=== PATIENT | male | born 1980 | race African-American/Black ===

== ENCOUNTER → 2016-12-06 | Outpatient (CLI) | payer OTHER ==
[~2016-12-06] MED LIST: GASTROGRAFIN SOLUTION 30ML (Q9963) As Ordered ONE; ISOVUE-370 76% 100ML VIAL (Q9967) As Ordered ONE
--- NOTE | 2016-12-06 15:10 | REP ---
CT ABDOMEN PELVIS WITH IV AND ORAL CONTRAST: HISTORY: Nausea and vomiting. CT CONTRAST DOSE: 100 mL of intravenous Isovue 370. CT FINDINGS: Preliminary digital soa architect radiograph is unremarkable. The lung bases are essentially clear. The esophagus is dilated and fluid distended at the time of CT imaging suggesting gastroesophageal reflux. Stomach is unremarkable. Gallbladder and pancreas are normal in appearance. No adrenal lesion is seen. 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 The right kidney is unremarkable. No hydronephrosis is seen. Normal caliber aorta is noted. No retroperitoneal mass or adenopathy is seen. A normal appendix is noted retrocecal. There are one or two dystrophic calcifications in the prostate gland. Seminal vesicles and urinary bladder are unremarkable. No abdominal wall defect is seen. No bony destructive lesion is appreciated. IMPRESSION: 1. Dilated fluid-filled distal esophagus probable reflux. 2. Somewhat malrotated left kidney. 3. Otherwise unremarkable CT abdomen and pelvis. Signed by Moses Valencia MD 12/06/2016 03:36 P
== END ==
LOC: M RAD 11:46
PROVIDERS: ATTEND Internal Medicine Gastroenterology
DX: R11.11 Vomiting without nausea (principal)
CPT/HCPCS: 74177; Q9963; Q9967

== ENCOUNTER → 2016-12-10 | Outpatient (CLI) | payer OTHER ==
[~2016-12-10] MED LIST changes: +E-Z-GAS II EFFERVESCENT PACKET (SODIUM BICARB./CITRIC ACID/SIMETHICONE) As Ordered ONE; +E-Z-HD 98% w/w 340GM SUSP BTL As Ordered ONE; +E-Z-PAQUE 96% w/w SUSP 176GM BTL As Ordered ONE; -GASTROGRAFIN SOLUTION 30ML (Q9963) As Ordered ONE; -ISOVUE-370 76% 100ML VIAL (Q9967) As Ordered ONE
--- NOTE | 2016-12-10 17:45 | REP ---
ESOPHAGRAM: The procedure was performed by LUCIANO Roberts under the direct supervision of Dr. Finney. All imaging was reviewed with Dr. Finney prior to dictation. The patient was able to ingest liquid barium and air in a quantity sufficient to produce a double contrast examination. The oral and pharyngeal stages of deglutition appeared unremarkable. There was dilatation of the esophagus. There is a smooth stricture at the distal end of the esophagus causing significant delay of passage of barium. Tertiary contractions are also noted. This is most consistent with achalasia. Impression: Smooth distal esophageal stricture, delayed passage of barium and esophageal dilatation. These are all consistent with Achalasia. Fluoroscopy time of 5 minutes and 12 seconds. Reviewed by LUCIANO Bernard 12/13/2016 09:40 AEdited and Signed by Kaiden Finney MD 12/13/2016 04:35 P
== END ==
LOC: M RAD 09:02
PROVIDERS: ATTEND Internal Medicine Gastroenterology
DX: K22.2 Esophageal obstruction (principal)

== ENCOUNTER 2016-12-13 10:03 | Outpatient (CLI) | payer OTHER ==
[~2016-12-13] VITALS: Ht 180.3 cm; Wt 76.2 kg
[~2016-12-13 10:03] MED LIST changes: -E-Z-GAS II EFFERVESCENT PACKET (SODIUM BICARB./CITRIC ACID/SIMETHICONE) As Ordered ONE; -E-Z-HD 98% w/w 340GM SUSP BTL As Ordered ONE; -E-Z-PAQUE 96% w/w SUSP 176GM BTL As Ordered ONE; +NS 1,000 ML IV ONE
[2016-12-13] MEDS ORDERED: LIDOCAINE 2% INJ 100 MG/5 ML SDV (FOR ANES.) As Ordered ONE (12:35)
[2016-12-13] MEDS ORDERED: PROPOFOL 200 MG/20 ML VIAL As Ordered ONE ×2 (12:35→12:44)
--- NOTE | 2016-12-13 12:59 | ROOR ---
Patient Name: Segun Canales Procedure Date: 12/13/2016 12:36 PM Date of : 1980 Age: 36 Room: [facility] Gender: Male Note Status: Finalized Procedure: Upper GI endoscopy Indications: Dysphagia, Persistent vomiting of unknown cause, Vomiting Providers: Elvis Brannon MD Referring MD: AMSOOD SANCHEZ MD Requesting Provider: Medicines: Monitored Anesthesia Care Complications: No immediate complications. Procedure: Pre-Anesthesia Assessment: - Prior to the procedure, a History and Physical was performed, and patient medications and allergies were reviewed. The patient is competent. The risks and benefits of the procedure and the sedation options and risks were discussed with the patient. All questions were answered and informed consent was obtained. Patient identification and proposed procedure were verified by the physician, the nurse and the roll up machine operator in the procedure room. Mental Status Examination: alert and oriented. Airway Examination: normal oropharyngeal airway and neck mobility. Respiratory Examination: clear to auscultation. CV Examination: normal. Prophylactic Antibiotics: The patient does not require prophylactic antibiotics. Prior Anticoagulants: The patient has taken no previous anticoagulant or antiplatelet agents. ASA Grade Assessment: II - A patient with mild systemic disease. After reviewing the risks and benefits, the patient was deemed in satisfactory condition to undergo the procedure. The anesthesia plan was to use monitored anesthesia care (MAC). Immediately prior to administration of medications, the patient was re-assessed for adequacy to receive sedatives. The heart rate, respiratory rate, oxygen saturations, blood pressure, adequacy of pulmonary ventilation, and response to care were monitored throughout the procedure. The physical status of the patient was re-assessed after the procedure. The Endoscope was introduced through the mouth, and advanced to the second part of duodenum. The upper GI endoscopy was accomplished without difficulty. The patient tolerated the procedure well. Findings: The lumen of the middle third of the esophagus and lower third of the esophagus was severely dilated. Biopsies were obtained from the proximal and distal esophagus with cold forceps for histology of suspected eosinophilic esophagitis. Verification of patient identification for the specimen was done by the physician and nurse using the patient's name, date and medical record number. The lower third of the esophagus was moderately tortuous. Diffuse mild inflammation characterized by erythema and granularity was found in the entire examined stomach. Two biopsies were obtained with cold forceps for histology in the gastric antrum, as well as two biopsies in the cardia. No gross lesions were noted in the duodenal bulb and in the second portion of the duodenum. Impression: - Dilation in the middle third of the esophagus and in the lower third of the esophagus. Biopsied. - Tortuous esophagus with increase resistance while passing scope through the lower esophageal sphincter. Suspect Achalasia. - Gastritis. - No gross lesions in the duodenal bulb and in the second portion of the duodenum. - Biopsies performed in the gastric antrum and in the cardia. Recommendation: - Patient has a contact number available for emergencies. The signs and symptoms of potential delayed complications were discussed with the patient. Return to normal activities tomorrow. Written discharge instructions were provided to the patient. - Resume previous diet. - Continue present medications. - Await pathology results. - Perform an esophagram / High resolution manometry at appointment to be scheduled. - Return to GI clinic in 1 week. - Return to primary care physician. Elvis Brannon MD Elvis Brannon MD 12/13/2016 12:59:18 PM This report has been signed electronically. Number of Addenda: 0 Note Initiated On: 12/13/2016 12:36 PM Estimated Blood Loss: Estimated blood loss was minimal.
[2016-12-13 13:15] VITALS: BP 117/81
== END 2016-12-13 13:40 | disposition home or self-care (01) ==
LOC: M OPP 10:03
PROVIDERS: ATTEND Internal Medicine Gastroenterology
DX: R11.10 Vomiting, unspecified (principal); R13.10 Dysphagia, unspecified; K29.70 Gastritis, unspecified, without bleeding; Q39.9 Congenital malformation of esophagus, unspecified; K22.8 Other specified diseases of esophagus; E78.5 Hyperlipidemia, unspecified